=== PATIENT | male | born 1990 | race Caucasian/White ===

== ENCOUNTER 2019-05-08 10:50 | Emergency (ER) | payer OTHER ==
[~2019-05-08] VITALS: Ht 175.3 cm; Wt 83.9 kg
[2019-05-08 10:52] VITALS: BP 116/75; Ht 175.3 cm; Wt 83.9 kg
== END 2019-05-08 13:05 | disposition home or self-care (01) ==
LOC: EDBD 10:50 → ED 10:50
DX: K02.9 Dental caries, unspecified (principal); L03.211 Cellulitis of face
CPT/HCPCS: J0696; J1885

== ENCOUNTER 2020-09-07 16:42 | Emergency (ER) | payer MEDICAID ==
[~2020-09-07] VITALS: Ht 175.3 cm; Wt 100.7 kg
[2020-09-07 17:10] VITALS: Ht 175.3 cm; Wt 100.7 kg
== END 2020-09-07 17:18 | disposition home or self-care (01) ==
LOC: ED 16:42
DX: S10.95XA Superficial foreign body of unspecified part of neck, initial encounter (principal); F17.210 Nicotine dependence, cigarettes, uncomplicated; F11.10 Opioid abuse, uncomplicated; W27.3XXA Contact with needle (sewing), initial encounter; Y93.89 Activity, other specified; Y92.89 Other specified places as the place of occurrence of the external cause; Y99.8 Other external cause status